=== PATIENT | female | born 1980 | race Caucasian/White ===

== ENCOUNTER → 2018-05-13 | Outpatient (CLI) | payer BC ==
--- NOTE | 2018-05-14 19:10 | Diagnostic Imaging Report ---
EXAMINATION: Digital Mammogram bilateral screening with 3D tomosynthesis and computer-aided detection (CAD) system. INDICATION: Screening. COMPARISON: There are no prior studies available for comparison. At this time, there are no current complaints. FINDINGS: The fibroglandular tissue in both breasts is heterogeneously dense. This does limit the sensitivity of this exam. There are a few benign-appearing calcifications in the retroareolar region of the left breast. There is no primary or secondary sign of malignancy noted. IMPRESSION: 1. There is no evidence of malignancy. 2. The patient should have her annual bilateral screening mammogram on schedule in April of 2018. ACR BI-RADS Category 1: Negative. Result letter will be mailed to the patient. Note: At least 10% of breast cancer is not imaged by mammography. Dictated by: Dictated on workstation # [id number]
== END ==
LOC: RAD 08:25
PROVIDERS: ATTEND Nurse Practitioner Primary Care
DX: Z12.31 Encounter for screening mammogram for malignant neoplasm of breast (principal)
CPT/HCPCS: 77067

== ENCOUNTER 2019-11-29 09:01 | Emergency (ER) | payer BC ==
[~2019-11-29] VITALS: Ht 167.4 cm; Wt 85.4 kg
[2019-11-29] MEDS ORDERED: KETOROLAC 30 MG/ML VIAL IVP STA (10:07)
[2019-11-29] MEDS ORDERED: LACTATED RINGERS 1,000 ML IV STA (10:07)
[2019-11-29] MEDS ORDERED: fentaNYL INJECTION 100 MCG/2 ML AMP IVP STA ×2 (10:07→12:00)
[2019-11-29] MEDS ORDERED: ONDANSETRON 4 MG/2 ML (SDV) Z0FRAN IVP ONE (10:15)
[2019-11-29 10:23] LABS: BASOPHILS % (AUTO) 1 % (0-10); EOSINOPHILS # (AUTO) 0.1 10^3/uL (0.0-0.3); EOSINOPHILS % (AUTO) 1 % (0-10); HEMATOCRIT 42 % (35-52); LYMPHOCYTES # (AUTO) 1.8 X 10^3 (1.0-4.0); LYMPHOCYTES % (AUTO) 36 % (12-44); MEAN CORPUSCULAR HEMOGLOBIN 30 PG (25-34); MEAN CORPUSCULAR HGB CONC 34 G/DL (32-36); MEAN CORPUSCULAR VOLUME 90 FL (80-99); MEAN PLATELET VOLUME 9.8 FL (7.4-10.4); MONOCYTES # (AUTO) 0.3 X 10^3 (0.0-1.0); MONOCYTES % (AUTO) 7 % (0-12); NEUTROPHILS # (AUTO) 2.8 X 10^3 (1.8-7.8); NEUTROPHILS % (AUTO) 55 % (42-75); PLATELET COUNT 199 10^3/uL (130-400); RED CELL DISTRIBUTION WIDTH 12.2 % (10.0-14.5)
[2019-11-29 10:25] LABS: ALBUMIN 4.5 GM/DL (3.2-4.5); CHLORIDE 108 MMOL/L (98-107); POTASSIUM 3.7 MMOL/L (3.6-5.0); SODIUM 141 MMOL/L (135-145)
[2019-11-29 10:26] LABS: CALCIUM 9.3 MG/DL (8.5-10.1)
[2019-11-29 10:27] LABS: GLUCOSE 99 MG/DL (70-105); TOTAL PROTEIN 7.7 GM/DL (6.4-8.2)
[2019-11-29 10:28] LABS: CARBON DIOXIDE 21 MMOL/L (21-32)
[2019-11-29 10:29] LABS: BILIRUBIN,TOTAL 0.8 MG/DL (0.1-1.0)
[2019-11-29 10:30] LABS: ALKALINE PHOSPHATASE 75 U/L (40-136)
[2019-11-29 10:31] LABS: CREATININE SERUM 0.88 MG/DL (0.60-1.30); GFR ESTIMATED > 60
--- NOTE | 2019-11-29 10:31 | NUR ---
PATIENT REPORTS THAT SHE SRINI UPDATE HER .
[2019-11-29 10:32] LABS: BUN/CREATININE RATIO 17
[2019-11-29 10:34] LABS: ALANINE AMINOTRANSFERASE 15 U/L (0-55)
--- NOTE | 2019-11-29 10:39 | ED Abdominal Pain ---
General Chief Complaint: Abdominal/GI Problems Stated Complaint: ABD PAIN Nursing Triage Note: AMB TO ED C/O L LOWER QUAD PAIN ONSET 3 DAYS AGO. DESCRIBES CRAMPING. 3 DAYS AGO HAD CONSTIPATION NOW IS INCREASED ABD CRAMPING WITH DIARRHEA AND NAUSEA. Sepsis Screen: No Definite Risk Source of Information: Patient Exam Limitations: No Limitations History of Present Illness Date Seen by Provider: Nov 29, 2019 Time Seen by Provider: 10:02 Initial Comments Here with report of left lower quadrant abdominal pain that has been gone on for 3 days. It was better and worse. She thought she might be constipated but had a little diarrhea. The cramping is much worse today. She has not had anything for the pain. She is uncomfortable really in any position. Denies fever or chills although is a little bit clammy currently. Denies upper respiratory symptoms. Has had tubal ligation as well as 2 previous C-sections. Last menstrual period was a week ago when uncomplicated. She is sexually active but it's been several weeks. She is monogamous with single partner that is her . Denies blood in her urine or stool. Timing/Duration: 3-4 Days Severity/Quality: Moderate, Aching, Cramping Location: LUQ Radiation: Back Activities at Onset: None Modifying Factors: Improves With Defecating Associated Symptoms: Back Pain; No Chest Pain, No Fever/Chills; Nausea/Vomiting; No Shortness of Air, No Swelling/Mass in Abdomen, No Weakness Allergies and Home Medications Allergies Coded Allergies: No Known Drug Allergies (Unverified , 11/29/19) Patient Home Medication List Home Medication List Reviewed: Yes Review of Systems Review of Systems Constitutional: see HPI; No chills, No fever EENTM: No Symptoms Reported Respiratory: Denies Cough, Denies Shortness of Air Cardiovascular: Denies Chest Pain, Denies Edema Gastrointestinal: Abdominal Pain, Diarrhea, Vomiting Genitourinary: Denies Burning, Denies Drainage, Denies Frequency, Denies Flank Pain, Denies Hematuria Musculoskeletal: see HPI; No muscle pain All Other Systems Reviewed Negative Unless Noted: Yes Past Isoyimg-Nhjrol-Mvlkha Hx Past Med/Social Hx: Reviewed Nursing Past Med/Soc Hx Patient Social History Alcohol Use: Denies Use Recreational Drug Use: No Smoking Status: Never a Smoker Recent Foreign Travel: No Contact w/Someone Who Travel: No Recent Infectious Disease Expo: No Past Medical History Surgeries: Yes Section Cardiac: No Genitourinary: No Gastrointestinal: Yes Gastroesophageal Reflux Musculoskeletal: No Endocrine: No HEENT: No Cancer: No Psychosocial: No Family Medical History Reviewed Nursing Family Hx Physical Exam Vital Signs Vital Signs - First Documented 11/29/19 09:04 Temp 36.6 Pulse 88 Resp 18 B/P (MAP) 129/100 (110) Pulse Ox 100 O2 Delivery Room Air Capillary Refill : Less Than 3 Seconds Height/Weight/BMI Height: '" Weight: lbs. oz. kg; 30.00 BMI Method: General Appearance: WD/WN, no apparent distress HEENT: PERRL/EOMI, pharynx normal Neck: full range of motion, supple Respiratory: lungs clear, normal breath sounds Cardiovascular: regular rate, rhythm, no murmur Gastrointestinal: soft; No guarding, No rebound; tenderness (left lower quadrant and suprapubic) Extremities: non-tender, normal inspection Back: normal inspection, no CVA tenderness, no vertebral tenderness Neurologic/Psychiatric: alert, oriented x 3 Skin: normal color, warm/dry Progress/Results/Core Measures Results/Orders Lab Results Laboratory Tests Test 11/29/19 09:21 11/29/19 11:10 Range/Units White Blood Count 5.0 4.3-11.0 10^3/uL Red Blood Count 4.62 4.35-5.85 10^6/uL Hemoglobin 14.0 11.5-16.0 G/DL Hematocrit 42 35-52 % Mean Corpuscular Volume 90 80-99 FL Mean Corpuscular Hemoglobin 30 25-34 PG Mean Corpuscular Hemoglobin Concent 34 32-36 G/DL Red Cell Distribution Width 12.2 10.0-14.5 % Platelet Count 199 130-400 10^3/uL Mean Platelet Volume 9.8 7.4-10.4 FL Neutrophils (%) (Auto) 55 42-75 % Lymphocytes (%) (Auto) 36 12-44 % Monocytes (%) (Auto) 7 0-12 % Eosinophils (%) (Auto) 1 0-10 % Basophils (%) (Auto) 1 0-10 % Neutrophils # (Auto) 2.8 1.8-7.8 X 10^3 Lymphocytes # (Auto) 1.8 1.0-4.0 X 10^3 Monocytes # (Auto) 0.3 0.0-1.0 X 10^3 Eosinophils # (Auto) 0.1 0.0-0.3 10^3/uL Basophils # (Auto) 0.0 0.0-0.1 10^3/uL Sodium Level 141 135-145 MMOL/L Potassium Level 3.7 3.6-5.0 MMOL/L Chloride Level 108 H 98-107 MMOL/L Carbon Dioxide Level 21 21-32 MMOL/L Anion Gap 12 5-14 MMOL/L Blood Urea Nitrogen 15 7-18 MG/DL Creatinine 0.88 0.60-1.30 MG/DL Estimat Glomerular Filtration Rate > 60 BUN/Creatinine Ratio 17 Glucose Level 99 70-105 MG/DL Calcium Level 9.3 8.5-10.1 MG/DL Corrected Calcium 8.9 8.5-10.1 MG/DL Total Bilirubin 0.8 0.1-1.0 MG/DL Aspartate Amino Transf (AST/SGOT) 17 5-34 U/L Alanine Aminotransferase (ALT/SGPT) 15 0-55 U/L Alkaline Phosphatase 75 40-136 U/L C-Reactive Protein High Sensitivity 0.18 0.00-0.50 MG/DL Total Protein 7.7 6.4-8.2 GM/DL Albumin 4.5 3.2-4.5 GM/DL Serum Test, Qualitative NEGATIVE NEGATIVE Urine Color YELLOW Urine Clarity CLEAR Urine pH 6.0 5-9 Urine Specific [place] >=1.030 1.016-1.022 Urine Protein 3+ H NEGATIVE Urine Glucose (UA) NEGATIVE NEGATIVE Urine Ketones TRACE H NEGATIVE Urine Nitrite NEGATIVE NEGATIVE Urine Bilirubin NEGATIVE NEGATIVE Urine Urobilinogen 0.2 < = 1.0 MG/DL Urine Leukocyte Esterase NEGATIVE NEGATIVE Urine RBC (Auto) 3+ H NEGATIVE Urine RBC 10-25 H /HPF Urine WBC NONE /HPF Urine Squamous Epithelial Cells 5-10 /HPF Urine Crystals NONE /LPF Urine Bacteria FEW H /HPF Urine Casts NONE /LPF Urine Mucus SMALL H /LPF Urine Culture Indicated NO My Orders Orders - BARBARA CUNNINGHAM MD Cbc With Automated Diff (11/29/19 10:07) Comprehensive Metabolic Panel (11/29/19 10:07) Hs C Reactive Protein (11/29/19 10:07) Hcg,Qualitative Serum (11/29/19 10:07) Ua Culture If Indicated (11/29/19 10:07) Ondansetron Injection (Zofran Injectio (11/29/19 10:15) Lactated Ringers (Lr 1000 Ml Iv Solution (11/29/19 10:07) Ed Iv/Invasive Line Start (11/29/19 10:07) Fentanyl Injection (Sublimaze Injection (11/29/19 10:07) Ketorolac Injection (Toradol Injection) (11/29/19 10:07) Ct Abd/Pelvis Wo(Kidney Stone) (11/29/19 11:58) Fentanyl Injection (Sublimaze Injection (11/29/19 12:00) Phenazopyridine Tablet (Pyridium Tablet) (11/29/19 12:58) Ceftriaxone For Iv Use (Rocephin For I (11/29/19 12:58) Medications Given in ED Current Medications Medications Dose Ordered Sig/Gianfranco Route Start Time Stop Time Status Last Admin Dose Admin Ondansetron HCl 4 mg ONCE ONCE IVP 11/29/19 10:15 11/29/19 10:16 DC 11/29/19 10:16 4 MG Vital Signs/I&O 11/29/19 09:04 Temp 36.6 Pulse 88 Resp 18 B/P (MAP) 129/100 (110) Pulse Ox 100 O2 Delivery Room Air Blood Pressure Mean: 110 Progress Progress Note : Progress Note Seen and evaluated. IV, labs, UA, LR 1 L bolus, Zofran 4 mg IV, Toradol 30 mg IV and fentanyl 50 g IV ordered. Monitor patient. 1159: CT abdomen and pelvis without contrast, kidney stone protocol, ordered. Patient noted to have blood in her urine. Pain was better after meds earlier but has slowly returned some. We will give fentanyl 50 g IV if pain worsens. Monitor patient. 1305: Peridium 100 mg by mouth. Rocephin [address] does show stone in the bladder. We will continue outpatient pain meds when necessary as well as antibiotics. This was discussed with the patient who agrees. Discharged home with return precautions. Patient verbalize understanding instructions and agreement with plan. Diagnostic Imaging Diagonstic Imaging: CT Plain Films/CT/US/NM/MRI: abdomen, pelvis Comments [facility] [place], [place] NAME: RICO DE LOS SANT[facility] REC#: [id number] PT STATUS: REG ER : 1980 PHYSICIAN: BARBARA CUNNINGHAM MD ADMIT DATE: 11/29/19/ER Draft Date of Exam:11/29/19 CT ABD/PELVIS WO(KIDNEY STONE) PROCEDURE: CT urinary tract, rule out kidney stone. TECHNIQUE: Multiple contiguous axial images were obtained through the abdomen and pelvis without the use of intravenous contrast. Auto Exposure Controls were utilized during the CT exam to meet ALARA standards for radiation dose reduction. INDICATION: Left flank pain. COMPARISON: There are no prior studies available for comparison. FINDINGS: The images through the low pelvis do show that there is a 3.5 mm calculus within the bladder just to the left of midline. The left ureter and left renal pelvis are dilated and I suspect that this calculus was producing partial obstruction of the left collecting system before it passed into the bladder. There is also a 2 mm nonobstructive calculus within the left kidney. There is no sign of nephrolithiasis or urolithiasis on the right. There is no acute pelvic abnormality noted otherwise. The urinary bladder itself is grossly unremarkable. The uterus does not appear to be enlarged. There is no pelvic mass or free fluid collection noted. The appendix is not well visualized, but there are no indirect signs of acute appendicitis. The liver, spleen, pancreas, gallbladder, adrenals, aorta and inferior vena cava show no sign of an acute abnormality. There is a small hiatal hernia. The lung bases are clear. The bone windows show no evidence for a fracture or for a destructive lesion. IMPRESSION: 1. There is a 3.5 mm calculus within the bladder just to the left of midline. Most likely, this was producing partial obstruction of the left collecting system. 2. There is no acute abnormality of the abdomen or pelvis noted otherwise. 3. The appendix is not well visualized. Dictated on workstation # [id number] Dict: 11/29/19 1228 Trans: 11/29/19 1249 [id number] Interpreted by: REUBEN MCLAIN MD Electronically signed by: Departure Impression Primary Impression: Left ureteral stone Disposition: 01 HOME, SELF-CARE Condition: Improved Departure-Patient Inst. Decision time for Depature: 13:06 Referrals: [facility] (PCP[facility]Family) Primary Care Physician Patient Instructions: Kidney Stones (DC) Add. Discharge Instructions: All discharge instructions reviewed with patient and/or family. Voiced understanding. Drink plenty of fluids. You may take ibuprofen 600 mg every 8 hours as needed for pain. Take prescribed pain medicine as directed. If you are not taking the prescribed hydrocodone/acetaminophen you may take Tylenol/acetaminophen 1000 mg every 8 hours as needed for pain. Do not take both at the same time as they both have acetaminophen in them. Strain urine to verify stone has passed. Return for worse pain, fever, vomiting, weakness, breathing problems or other concerns as needed. Follow-up with your Dr. in a few days for recheck as needed. Scripts Phenazopyridine HCl (Pyridium) 100 Mg Tablet 100 MG PO Q8H PRN for PAIN-MODERATE (5-7), #6 TAB 0 Refills Prov: BARBARA CUNNINGHAM MD 11/29/19 Hydrocodone/Acetaminophen (Hydrocodone/Acetaminophen 5 MG/325 MG TAB) 1 Each Tablet 1 TAB PO Q6H for Pain MDD 10 TABS for 7 Days, #8 TAB 0 Refills Prov: BARBARA CUNNINGHAM MD 11/29/19 Cephalexin (Cephalexin) 500 Mg Tablet 500 MG PO BID, #10 TAB 0 Refills Prov: BARBARA CUNNINGHAM MD 11/29/19 BARBARA CUNNINGHAM MD Nov 29, 2019 10:39
--- NOTE | 2019-11-29 10:46 | NUR ---
TO ROOM FLUIDS INFUSING REPORTS PAIN BETTER.
[2019-11-29 11:27] LABS: BILIRUBIN,URINE NEGATIVE (NEGATIVE); CLARITY,URINE CLEAR; COLOR,URINE YELLOW; GLUCOSE, URINE (UA) NEGATIVE (NEGATIVE); KETONES,URINE TRACE (NEGATIVE); LEUKOCYTE ESTERASE ,URINE NEGATIVE (NEGATIVE); NITRITE,URINE NEGATIVE (NEGATIVE); PROTEIN,URINE 3+ (NEGATIVE)
[2019-11-29 11:46] LABS: BACTERIA,URINE FEW /HPF
--- NOTE | 2019-11-29 12:40 | NUR ---
TO ROOM PATIENT REPORTS SHE IS COMFORTABLE CON'T TO DECLINE PAIN MEDS AT THIS TIME.
--- NOTE | 2019-11-29 12:50 | Diagnostic Imaging Report ---
PROCEDURE: CT urinary tract, rule out kidney stone. TECHNIQUE: Multiple contiguous axial images were obtained through the abdomen and pelvis without the use of intravenous contrast. Auto Exposure Controls were utilized during the CT exam to meet ALARA standards for radiation dose reduction. INDICATION: Left flank pain. COMPARISON: There are no prior studies available for comparison. FINDINGS: The images through the low pelvis do show that there is a 3.5 mm calculus within the bladder just to the left of midline. The left ureter and left renal pelvis are dilated and I suspect that this calculus was producing partial obstruction of the left collecting system before it passed into the bladder. There is also a 2 mm nonobstructive calculus within the left kidney. There is no sign of nephrolithiasis or urolithiasis on the right. There is no acute pelvic abnormality noted otherwise. The urinary bladder itself is grossly unremarkable. The uterus does not appear to be enlarged. There is no pelvic mass or free fluid collection noted. The appendix is not well visualized, but there are no indirect signs of acute appendicitis. The liver, spleen, pancreas, gallbladder, adrenals, aorta and inferior vena cava show no sign of an acute abnormality. There is a small hiatal hernia. The lung bases are clear. The bone windows show no evidence for a fracture or for a destructive lesion. IMPRESSION: 1. There is a 3.5 mm calculus within the bladder just to the left of midline. Most likely, this calculus was recently passed into the bladder, and I suspect that the calculus was producing partial obstruction of the left collecting system. 2. There is no acute abnormality of the abdomen or pelvis noted otherwise. 3. The appendix is not well visualized. Dictated by: Dictated on workstation # [id number]
--- NOTE | 2019-11-29 12:50 | NUR ---
PATIENT HAS BEEN UPDATING HER BY TEXT.
[2019-11-29] MEDS ORDERED: cefTRIAXone FOR IV USE 1,000 MG in WATER (STERILE) FOR INJECTION 10 ML IV STA (12:58)
[2019-11-29] MEDS ORDERED: PHENAZOPYRIDINE 100 MG (PYRIDIUM) TABLET PO STA (12:58)
[2019-11-29] MEDS ORDERED: CEPH500T PO (13:09)
[2019-11-29] MEDS ORDERED: PHEN-639 PO (13:09)
[2019-11-29] MEDS ORDERED: HYDR-4226 PO (13:09)
--- NOTE | 2019-11-29 13:18 | NUR ---
PATIENT CON'T TO DECLINE PAIN MED.
[2019-11-29 13:24] VITALS: BP 103/78
== END 2019-11-29 13:24 | disposition home or self-care (01) ==
LOC: EDUNIT# 09:01 → ER 09:02
DX: N20.1 Calculus of ureter (principal)
CPT/HCPCS: 36415; 74176; 80053; 81000; 84703; 85025; 86141

== ENCOUNTER → 2020-08-24 | Outpatient (CLI) | payer BC ==
[~2020-08-24] MED LIST: CEPH500T PO; HYDR-4226 PO; PHEN-639 PO
--- NOTE | 2020-08-24 13:39 | Diagnostic Imaging Report ---
INDICATION: Routine screening. COMPARISON: 05/13/2018. TECHNIQUE: 2D and 3D bilateral screening mammography was performed with CAD. FINDINGS: Both breasts are heterogeneously dense, limiting the sensitivity of mammography. The parenchymal pattern is stable. No mass or malignant appearing microcalcifications are seen. The axillae are unremarkable. IMPRESSION: No mammographic features suspicious for malignancy are identified. ACR BI-RADS Category 1: Negative. Result letter will be mailed to the patient. Note: At least 10% of breast cancer is not imaged by mammography. Dictated by: Dictated on workstation # [id number]
== END ==
LOC: RAD 10:05
PROVIDERS: ATTEND Nurse Practitioner
DX: Z12.31 Encounter for screening mammogram for malignant neoplasm of breast (principal)
CPT/HCPCS: 77063; 77067

== ENCOUNTER → 2021-10-10 | Outpatient (CLI) | payer BC ==
[~2021-10-10] MED LIST changes: +CATHETER FLUSH 10 ML SYR IVP PRN
--- NOTE | 2021-10-10 11:54 | Diagnostic Imaging Report ---
INDICATION: Gastroesophageal reflux disease. Patient was administered 5.5 mCi technetium 99M Choletec and imaging over the abdomen was performed. At 45 minutes patient ingested Ensure and gallbladder ejection fraction was calculated. There is homogeneous uptake of activity by the liver with prompt excretion of activity into the common duct and gallbladder. There is normal passage of activity into the small bowel. Gallbladder ejection fraction is normal at 67%. IMPRESSION: Normal HIDA scan and gallbladder ejection fraction. Dictated by: Dictated on workstation # [id number]
== END ==
LOC: CARD 09:10
PROVIDERS: ATTEND Physician Assistant
DX: K21.9 Gastro-esophageal reflux disease without esophagitis (principal)
CPT/HCPCS: 78227; A9537